=== PATIENT | female | born 1935 | race African-American/Black ===

== ENCOUNTER 2017-07-07 19:00 | Inpatient (IN) | payer MEDICARE, OTHER ==
[~2017-07-07] VITALS: Ht 162.6 cm; Wt 61.7 kg
[2017-07-07 20:49] LABS: Basophils # (auto) 0 uL; Eosinophils # (auto) 0 uL; Neutrophils % (auto) 89.7 % (37.0-80.0); Nucleated Red Blood Cells % 0.1 %
[2017-07-07 20:51] LABS: Basophils % (auto) 0.2 % (0.0-2.0); Hematocrit 35.6 % (36.0-46.0); Hemoglobin 11.3 g/dL (12.2-16.2); Lymphocytes # (auto) 0.7 uL; Lymphocytes % (auto) 4.3 % (10.0-50.0); Mean Corpuscular Hgb Conc. 31.9 g/dL (32.0-36.0); Mean Corpuscular Volume 72.2 fL (80.0-100.0); Monocytes % (auto) 5.8 % (0.0-12.0); Neutrophils # (auto) 15.1 uL; Platelet Count (auto) 215 10^3/uL (140-450); Red Blood Cells 4.93 10^6/uL (4.0-5.20); White Blood Cell 16.8 10^3/uL (4.4-10.8)
[2017-07-07 21:14] LABS: Albumin 2.2 g/dL (3.4-5.0); Anion Gap 8 (5-15); Blood Urea Nitrogen 40 mg/dL (7-18); Calcium 8.3 mg/dL (8.5-10.1); Carbon Dioxide 26 mmol/L (21-32); Chloride 106 mmol/L (98-107); Glucose 108 mg/dL (74-106); Magnesium 2.7 mg/dL (1.6-2.6); Potassium 3.5 mmol/L (3.5-5.1); Sodium 140 mmol/L (136-145)
[2017-07-07 21:16] LABS: Alanine Aminotransferase 52 U/L (13-56); Aspartate Aminotransferase 69 U/L (15-37); BUN/Creatinine Ratio 23.4; GFR African American 37 mL/min; GFR Non-African American 31 mL/min
[2017-07-07 21:17] LABS: Lactic Acid w/Reflex 2.1 mmol/L (0.4-2.0)
[2017-07-07 21:32] LABS: Alkaline Phosphatase 129 U/L (45-117); Total Protein 7.4 g/dL (6.4-8.2)
[2017-07-07] MEDS ORDERED: IOHEXOL 350 MG/ML 100ML IJ ONE (21:33)
[2017-07-07] MEDS ORDERED: TUBERCULIN PPD 5 UNIT/0.1 ML ID ONE (22:45)
[2017-07-08] MEDS ORDERED: ACETAMINOPHEN 500 MG TAB PO PRN (04:45)
[2017-07-08] MEDS ORDERED: ONDANSETRON HCL 4 MG/2 ML VIAL IV PRN (04:45)
[2017-07-08] MEDS ORDERED: HYDROcodone-ACET 5/325MG TAB PO PRN (04:45)
[2017-07-08] MEDS ORDERED: MORPHINE SULF INJ 2 MG/ML SYRINGE 1ML IV PRN (04:45)
[2017-07-08 05:01] LABS: Basophils # (auto) 0 uL; Basophils % (auto) 0.1 % (0.0-2.0); Eosinophils # (auto) 0 uL; Hemoglobin 10.4 g/dL (12.2-16.2); Neutrophils # (auto) 14.1 uL; Nucleated Red Blood Cells % 0.1 %; Red Blood Cells 4.53 10^6/uL (4.0-5.20)
[2017-07-08 05:03] LABS: Eosinophils % (auto) 0.1 % (0.0-7.0); Hematocrit 32.4 % (36.0-46.0); Lymphocytes # (auto) 0.8 uL; Lymphocytes % (auto) 5.2 % (10.0-50.0); Mean Corpuscular Hemoglobin 22.9 pg (28.0-32.0); Mean Corpuscular Hgb Conc. 32.1 g/dL (32.0-36.0); Mean Corpuscular Volume 71.4 fL (80.0-100.0); Monocytes # (auto) 1.1 uL; Monocytes % (auto) 6.7 % (0.0-12.0); Neutrophils % (auto) 87.9 % (37.0-80.0); Platelet Count (auto) 186 10^3/uL (140-450); Red Cell Distribution Width 14.3 % (11.8-14.3); White Blood Cell 16.1 10^3/uL (4.4-10.8)
[2017-07-08 05:12] LABS: BUN/Creatinine Ratio 26.5; Calcium 8.4 mg/dL (8.5-10.1); Potassium 3.6 mmol/L (3.5-5.1)
[2017-07-08] MEDS ORDERED: AZITHROMYCIN 500MG/ 250ML 250 ML IV ONE ×2 (05:15→05:29)
[2017-07-08] MEDS ORDERED: VANCOMYCIN PER PHARMACY 0 MG IV SCH (05:30)
[2017-07-08] MEDS: SODIUM CHLORIDE 0.9% 1,000 ML IV SCH ×2 (05:37→18:17)
[2017-07-08] MEDS ORDERED: VANCOMYCIN 1GM/250ML 250 ML IV SCH (05:45)
[2017-07-08] MEDS ORDERED: cefTRIAXone 1GM/10ml IVPUSH 10 ML IV SCH (09:00)
[2017-07-08] MEDS: amLODIPine BESYLATE 5 MG TAB PO SCH (09:56)
[2017-07-08] MEDS: VANCOMYCIN 1GM/250ML 250 ML IV SCH (10:13)
[2017-07-08] MEDS ORDERED: MORPHINE SULFATE 4 MG/ML SYR/VIAL IV PRN (10:45)
[2017-07-08] MEDS: MEMANTINE HCL 5 MG TAB PO SCH (10:50)
[2017-07-08 17:20] VITALS: BP 98/59
[2017-07-08] MEDS: ALBUTEROL SULF 2.5 MG/0.5ML(0.5%) NEB SOLN NEB SCH (19:00)
[2017-07-08] MEDS ORDERED: LISI40TA PO (19:36)
[2017-07-08] MEDS ORDERED: AMLO10TA2 PO (19:36)
[2017-07-08] MEDS ORDERED: LOVA20TA4 PO (19:36)
[2017-07-08] MEDS ORDERED: GABA100C9 PO (19:36)
[2017-07-08] MEDS ORDERED: DONE10TA40 PO (19:36)
[2017-07-08] MEDS ORDERED: MEMA7CAP OR (19:36)
[2017-07-09 00:38] VITALS: BP 109/66
[2017-07-09 05:37] VITALS: BP 112/72
[2017-07-09] MEDS: ALBUTEROL SULF 2.5 MG/0.5ML(0.5%) NEB SOLN NEB SCH ×4 (06:30→20:11)
[2017-07-09 06:35] LABS: Basophils # (auto) 0 uL; Eosinophils # (auto) 0 uL; Lymphocytes # (auto) 0.7 uL
[2017-07-09 06:35] LABS: Urine Bacteria FEW /hpf (None Seen); Urine Blood Negative /uL (Negative); Urine Mucus FEW (None Seen); Urine Specific Gravity 1.015 (1.001-1.035); Urine WBC 3 /hpf (0 - 5)
[2017-07-09 06:37] LABS: Basophils % (auto) 0.1 % (0.0-2.0); Eosinophils % (auto) 0.5 % (0.0-7.0); Hemoglobin 10.3 g/dL (12.2-16.2); Mean Corpuscular Hemoglobin 23.1 pg (28.0-32.0); Mean Corpuscular Hgb Conc. 32.1 g/dL (32.0-36.0); Mean Corpuscular Volume 71.8 fL (80.0-100.0); Monocytes # (auto) 0.9 uL; Monocytes % (auto) 8.5 % (0.0-12.0); Neutrophils # (auto) 8.7 uL; Neutrophils % (auto) 83.9 % (37.0-80.0); Nucleated Red Blood Cells % 0.3 %; Platelet Count (auto) 187 10^3/uL (140-450); Red Blood Cells 4.45 10^6/uL (4.0-5.20); Red Cell Distribution Width 14.6 % (11.8-14.3); White Blood Cell 10.4 10^3/uL (4.4-10.8)
[2017-07-09 06:54] LABS: Albumin 1.6 g/dL (3.4-5.0); BUN/Creatinine Ratio 23.3; Bilirubin, Total 0.7 mg/dL (0.2-1.0); Potassium 3.8 mmol/L (3.5-5.1); Total Protein 6.2 g/dL (6.4-8.2)
[2017-07-09 09:00] VITALS: BP 110/64
[2017-07-09] MEDS: SODIUM CHLORIDE 0.9% 1,000 ML IV SCH ×2 (12:11→21:30)
[2017-07-09] MEDS: MEMANTINE HCL 5 MG TAB PO SCH (12:12)
[2017-07-09] MEDS: amLODIPine BESYLATE 5 MG TAB PO SCH (12:12)
[2017-07-09 13:00] VITALS: BP 105/55
[2017-07-09 17:00] VITALS: BP 109/61
[2017-07-09 21:24] VITALS: BP 125/74
[2017-07-09] MEDS: VANCOMYCIN 1GM/250ML 250 ML IV SCH (22:33)
[2017-07-10 05:26] VITALS: BP 122/74
[2017-07-10 06:00] LABS: Basophils # (auto) 0 uL; Lymphocytes # (auto) 1.1 uL; White Blood Cell 13.2 10^3/uL (4.4-10.8)
[2017-07-10 06:02] LABS: Basophils % (auto) 0.1 % (0.0-2.0); Eosinophils # (auto) 0 uL; Eosinophils % (auto) 0.3 % (0.0-7.0); Hematocrit 33.4 % (36.0-46.0); Hemoglobin 10.8 g/dL (12.2-16.2); Lymphocytes % (auto) 8.7 % (10.0-50.0); Mean Corpuscular Hgb Conc. 32.3 g/dL (32.0-36.0); Mean Corpuscular Volume 71.2 fL (80.0-100.0); Monocytes % (auto) 7.5 % (0.0-12.0); Neutrophils % (auto) 83.4 % (37.0-80.0); Nucleated Red Blood Cells % 0.2 %; Platelet Count (auto) 240 10^3/uL (140-450); Red Blood Cells 4.68 10^6/uL (4.0-5.20); Red Cell Distribution Width 14.6 % (11.8-14.3)
[2017-07-10] MEDS: ALBUTEROL SULF 2.5 MG/0.5ML(0.5%) NEB SOLN NEB SCH ×3 (06:20→18:00)
[2017-07-10 06:28] LABS: BUN/Creatinine Ratio 15.3; Calcium 8.5 mg/dL (8.5-10.1); Potassium 3.3 mmol/L (3.5-5.1)
[2017-07-10 08:23] VITALS: BP 122/62
[2017-07-10] MEDS: amLODIPine BESYLATE 5 MG TAB PO SCH (09:10)
[2017-07-10] MEDS: MEMANTINE HCL 5 MG TAB PO SCH (09:10)
[2017-07-10 12:30] VITALS: BP 130/68
[2017-07-10] MEDS ORDERED: ALBUTEROL SULF 2.5 MG/0.5ML(0.5%) NEB SOLN NEB PRN (14:00)
[2017-07-10] MEDS ORDERED: LEVOFLOXACIN 500MG 100 ML IV ONE (14:00)
[2017-07-10] MEDS: SODIUM CHLORIDE 0.9% 1,000 ML IV SCH ×2 (14:41→23:54)
[2017-07-10 16:00] VITALS: BP 133/69
[2017-07-10] MEDS ORDERED: POTASSIUM CHL 10 Meq TABLET PO ONE (17:00)
[2017-07-10] MEDS: IPRATROPIUM BROM 0.5 MG/2.5ML INH SOL NEB SCH (18:00)
[2017-07-10] MEDS: BOOST PLUS 8 ounce PO SCH (18:02)
[2017-07-10] MEDS ORDERED: LORazepam 2MG/ML-1ML VIAL IV ONE (19:45)
[2017-07-10 20:01] VITALS: BP 154/90
[2017-07-10 22:31] VITALS: BP 114/73
[2017-07-11 00:10] VITALS: BP 127/73
[2017-07-11] MEDS ORDERED: methylPREDNISolone SOD SUCC 125 MG/2 ML VL ONE (00:23)
[2017-07-11] MEDS ORDERED: FUROSEMIDE 20 MG/2 ML VIAL ONE (00:23)
[2017-07-11] MEDS ORDERED: FUROSEMIDE 20 MG/2 ML VIAL IV ONE (00:30)
[2017-07-11] MEDS ORDERED: methylPREDNISolone SOD SUCC 125 MG/2 ML VL IV ONE (00:30)
[2017-07-11 04:31] VITALS: BP 135/82
[2017-07-11] MEDS: ALBUTEROL SULF 2.5 MG/0.5ML(0.5%) NEB SOLN NEB SCH ×4 (05:39→19:27)
[2017-07-11] MEDS: IPRATROPIUM BROM 0.5 MG/2.5ML INH SOL NEB SCH ×4 (05:39→19:27)
[2017-07-11 06:19] LABS: Basophils # (auto) 0 uL; Eosinophils # (auto) 0 uL; Mean Corpuscular Hemoglobin 22.9 pg (28.0-32.0); Monocytes # (auto) 0.2 uL
[2017-07-11 06:23] LABS: Basophils % (auto) 0.1 % (0.0-2.0); Eosinophils % (auto) 0.1 % (0.0-7.0); Hematocrit 33.1 % (36.0-46.0); Hemoglobin 10.6 g/dL (12.2-16.2); Lymphocytes # (auto) 0.2 uL; Lymphocytes % (auto) 2.4 % (10.0-50.0); Mean Corpuscular Hgb Conc. 32.1 g/dL (32.0-36.0); Mean Corpuscular Volume 71.3 fL (80.0-100.0); Monocytes % (auto) 1.7 % (0.0-12.0); Neutrophils # (auto) 9.8 uL; Neutrophils % (auto) 95.7 % (37.0-80.0); Nucleated Red Blood Cells % 0.1 %; Platelet Count (auto) 254 10^3/uL (140-450); Red Blood Cells 4.65 10^6/uL (4.0-5.20); Red Cell Distribution Width 14.6 % (11.8-14.3); White Blood Cell 10.2 10^3/uL (4.4-10.8)
[2017-07-11 06:53] LABS: BUN/Creatinine Ratio 9.8; Bilirubin, Total 0.6 mg/dL (0.2-1.0); Calcium 8.3 mg/dL (8.5-10.1); Potassium 3.3 mmol/L (3.5-5.1); Total Protein 7.3 g/dL (6.4-8.2)
[2017-07-11 07:30] VITALS: BP 109/68
[2017-07-11] MEDS: BOOST PLUS 8 ounce PO SCH ×3 (07:36→17:34)
[2017-07-11] MEDS: SODIUM CHLORIDE 0.9% 1,000 ML IV SCH ×2 (10:13→19:54)
[2017-07-11] MEDS: LEVOFLOXACIN 500MG 100 ML IV SCH (10:13)
[2017-07-11] MEDS: amLODIPine BESYLATE 5 MG TAB PO SCH (10:14)
[2017-07-11] MEDS: MEMANTINE HCL 5 MG TAB PO SCH (10:14)
[2017-07-11] MEDS ORDERED: POTASSIUM CHL 10% (20 MEQ/15ML) 15ml ORAL SOLN PO ONE (11:00)
[2017-07-11 11:59] VITALS: BP 122/76
[2017-07-11 16:00] VITALS: BP 109/78
[2017-07-12] VITALS (7 sets, daily range): BP systolic 109–137; BP diastolic 63–86
[2017-07-12] MEDS: IPRATROPIUM BROM 0.5 MG/2.5ML INH SOL NEB SCH ×4 (01:10→18:41)
[2017-07-12] MEDS: ALBUTEROL SULF 2.5 MG/0.5ML(0.5%) NEB SOLN NEB SCH ×4 (01:10→18:41)
[2017-07-12] MEDS: SODIUM CHLORIDE 0.9% 1,000 ML IV SCH ×2 (05:54→16:00)
[2017-07-12] MEDS: BOOST PLUS 8 ounce PO SCH ×3 (08:00→18:00)
[2017-07-12] MEDS: MEMANTINE HCL 5 MG TAB PO SCH (10:13)
[2017-07-12] MEDS: LEVOFLOXACIN 500MG 100 ML IV SCH (10:13)
[2017-07-12] MEDS: amLODIPine BESYLATE 5 MG TAB PO SCH ×2 (10:32→10:33)
[2017-07-12] MEDS: AZITHROMYCIN 500MG/ 250ML 250 ML IV SCH (17:43)
[2017-07-12] MEDS: ceFAZolin 1GM/50ML 50 ML IV SCH (17:54)
[2017-07-13] MEDS: ceFAZolin 1GM/50ML 50 ML IV SCH ×5 (00:05→23:33)
[2017-07-13] MEDS: IPRATROPIUM BROM 0.5 MG/2.5ML INH SOL NEB SCH ×4 (00:07→18:59)
[2017-07-13] MEDS: ALBUTEROL SULF 2.5 MG/0.5ML(0.5%) NEB SOLN NEB SCH ×4 (00:07→18:59)
[2017-07-13] MEDS: SODIUM CHLORIDE 0.9% 1,000 ML IV SCH ×3 (01:54→23:49)
[2017-07-13 05:13] VITALS: BP 119/80
[2017-07-13] MEDS: BOOST PLUS 8 ounce PO SCH ×3 (08:00→18:00)
[2017-07-13 09:39] VITALS: BP 122/74
[2017-07-13] MEDS: AZITHROMYCIN 500MG/ 250ML 250 ML IV SCH (10:24)
[2017-07-13] MEDS: MEMANTINE HCL 5 MG TAB PO SCH (10:24)
[2017-07-13] MEDS: amLODIPine BESYLATE 5 MG TAB PO SCH (10:26)
[2017-07-13 12:59] VITALS: BP 124/65
[2017-07-13 17:00] VITALS: BP 113/70
[2017-07-13 22:33] VITALS: BP 111/65
[2017-07-14] MEDS: IPRATROPIUM BROM 0.5 MG/2.5ML INH SOL NEB SCH ×4 (00:29→20:30)
[2017-07-14] MEDS: ALBUTEROL SULF 2.5 MG/0.5ML(0.5%) NEB SOLN NEB SCH ×4 (00:29→20:30)
[2017-07-14 05:05] VITALS: BP 134/78
[2017-07-14] MEDS: ceFAZolin 1GM/50ML 50 ML IV SCH ×4 (06:15→23:36)
[2017-07-14] MEDS: BOOST PLUS 8 ounce PO SCH ×3 (07:45→17:38)
[2017-07-14 07:52] VITALS: BP 134/77
[2017-07-14] MEDS: AZITHROMYCIN 500MG/ 250ML 250 ML IV SCH (10:30)
[2017-07-14] MEDS: MEMANTINE HCL 5 MG TAB PO SCH (10:30)
[2017-07-14] MEDS: amLODIPine BESYLATE 5 MG TAB PO SCH (10:31)
[2017-07-14 12:06] VITALS: BP 123/71
[2017-07-14 13:54] VITALS: BP 134/77
[2017-07-14 17:12] VITALS: BP 128/73
[2017-07-14] MEDS: SODIUM CHLORIDE 0.9% 1,000 ML IV SCH ×2 (17:38→18:16)
[2017-07-14 21:35] VITALS: BP 112/65
[2017-07-15] MEDS: IPRATROPIUM BROM 0.5 MG/2.5ML INH SOL NEB SCH ×4 (00:34→18:57)
[2017-07-15] MEDS: ALBUTEROL SULF 2.5 MG/0.5ML(0.5%) NEB SOLN NEB SCH ×4 (00:34→18:57)
[2017-07-15] MEDS: SODIUM CHLORIDE 0.9% 1,000 ML IV SCH ×2 (04:00→14:45)
[2017-07-15 05:14] VITALS: BP 123/77
[2017-07-15] MEDS: ceFAZolin 1GM/50ML 50 ML IV SCH ×2 (05:17→11:32)
[2017-07-15] MEDS: BOOST PLUS 8 ounce PO SCH ×3 (08:00→18:07)
[2017-07-15] MEDS: AZITHROMYCIN 500MG/ 250ML 250 ML IV SCH (09:08)
[2017-07-15 10:08] VITALS: BP 132/77
[2017-07-15] MEDS: amLODIPine BESYLATE 5 MG TAB PO SCH (11:31)
[2017-07-15] MEDS: MEMANTINE HCL 5 MG TAB PO SCH (11:31)
[2017-07-15 12:18] VITALS: BP 113/64
[2017-07-15 21:28] LABS: Hepatitis B Surface Antibody Negative
[2017-07-15 21:39] LABS: Hepatitis B Surface Antigen Negative (Negative)
[2017-07-15] MEDS: PENICILLIN V POTASSIUM 250 MG TAB PO SCH ×2 (21:56→22:00)
[2017-07-15 22:00] VITALS: BP 112/53
[2017-07-16] MEDS: IPRATROPIUM BROM 0.5 MG/2.5ML INH SOL NEB SCH ×3 (00:09→11:41)
[2017-07-16] MEDS: ALBUTEROL SULF 2.5 MG/0.5ML(0.5%) NEB SOLN NEB SCH ×3 (00:09→11:41)
[2017-07-16] MEDS: SODIUM CHLORIDE 0.9% 1,000 ML IV SCH ×2 (02:46→09:46)
[2017-07-16 05:27] VITALS: BP 131/76
[2017-07-16] MEDS: PENICILLIN V POTASSIUM 250 MG TAB PO SCH ×2 (05:27→11:29)
[2017-07-16 09:00] VITALS: BP 115/72
[2017-07-16] MEDS: MEMANTINE HCL 5 MG TAB PO SCH (09:45)
[2017-07-16] MEDS: BOOST PLUS 8 ounce PO SCH ×2 (09:46→11:31)
[2017-07-16] MEDS: amLODIPine BESYLATE 5 MG TAB PO SCH (09:46)
[2017-07-16 12:28] VITALS: BP 115/72
[2017-07-16 13:00] VITALS: BP 107/67
== END 2017-07-16 14:15 | disposition home or self-care (01) | DRG 871 ==
LOC: ER 19:03 → OVERFLOW 19:04 → CENTRAL 07-08 11:34 → EAST 07-08 15:50 → ICU CENTRL 07-10 15:57 → DOU IN ICU 07-10 15:58 → TELE-CENTR 07-12 16:51
PROVIDERS: ADMIT Nurse Practitioner Family; ATTEND Internal Medicine Pulmonary Disease
DX: A41.9 Sepsis, unspecified organism (principal); N17.0 Acute kidney failure with tubular necrosis; J96.00 Acute respiratory failure, unspecified whether with hypoxia or hypercapnia; E87.0 Hyperosmolality and hypernatremia; E46 Unspecified protein-calorie malnutrition; J13 Pneumonia due to Streptococcus pneumoniae; D64.9 Anemia, unspecified; A15.0 Tuberculosis of lung; E86.0 Dehydration; I13.10 Hypertensive heart and chronic kidney disease without heart failure, with stage 1 through stage 4 chronic kidney disease, or unspecified chronic kidney disease; E78.5 Hyperlipidemia, unspecified; E87.6 Hypokalemia; F03.90 Unspecified dementia, unspecified severity, without behavioral disturbance, psychotic disturbance, mood disturbance, and anxiety; I67.9 Cerebrovascular disease, unspecified; N18.3 Chronic kidney disease, stage 3 (moderate); Z86.73 Personal history of transient ischemic attack (TIA), and cerebral infarction without residual deficits; Z79.899 Other long term (current) drug therapy; Z68.23 Body mass index [BMI] 23.0-23.9, adult
CPT/HCPCS: 36415; 36600; 71010; 71250; 80048; 80053; 80202; 81001; 82805; 83605; 83735; 83880; 84484; 85025; 86703; 86706; 86803; 87040; 87070; 87077; 87081; 87086; 87186; 87205; 87340; 87400; 93005; 94640; 96361; 96365; 97163; J0690; J1956; J2405